=== PATIENT | male | born 1990 | race African-American/Black ===

== ENCOUNTER 2019-06-05 22:46 | Emergency (ER) | payer OTHER ==
[~2019-06-05] VITALS: Ht 185.4 cm; Wt 108.8 kg
[2019-06-06 01:01] LABS: ABSOLUTE BASOPHILS 0.1 thou/uL (0.0-0.2); ABSOLUTE EOSINOPHILS 0.2 thou/uL (0.0-0.7); ABSOLUTE LYMPHOCYTES 2.6 thou/uL (0.8-5.3); ABSOLUTE MONOCYTES 0.6 thou/uL (0.0-1.2); ABSOLUTE NEUTROPHILS 2.8 thou/uL (1.6-8.1); BASOPHILS 1.3 %; EOSINOPHILS 2.5 %; HEMATOCRIT 39.9 % (42.0-52.0); HEMOGLOBIN 13.8 gm/dL (14.0-18.0); LYMPHOCYTES 42.2 %; MCH 27.1 pg (26.0-34.0); MCHC 34.5 g/dL (28.0-37.0); MCV 78.7 fL (80.0-100.0); MPV 9.4 fl. (7.2-11.1); NUCLEATED RBCS 0 /100WBC; PLATELET COUNT* 213 thou/uL (150-400); RBC 5.07 mil/uL (4.50-6.00); RDW-CV 13.4 % (10.5-14.5); WBC 6.2 thou/uL (4.0-11.0)
[2019-06-06 01:07] LABS: CALCIUM 8.7 mg/dL (8.5-10.1); CREATININE 0.9 mg/dL (0.6-1.3); POTASSIUM 3.3 mmol/L (3.5-5.1)
[2019-06-06 01:12] LABS: ALBUMIN 3.6 g/dL (3.4-5.0); TOTAL BILIRUBIN 1.1 mg/dL (<0.1-1.0); TOTAL PROTEIN 7.2 g/dL (6.4-8.2)
[2019-06-06 01:18] LABS: URINE BILIRUBIN NEGATIVE (Negative); URINE BLOOD NEGATIVE (Negative); URINE CLARITY CLEAR; URINE COLOR YELLOW; URINE GLUCOSE-RANDOM NEGATIVE (Negative); URINE KETONES NEGATIVE (Negative); URINE LEUKOCYTES-REFLEX NEGATIVE (Negative); URINE NITRITE-REFLEX NEGATIVE (Negative); URINE PROTEIN NEGATIVE (Negative); URINE SPECIFIC GRAVITY >= 1.030 (1.005-1.030); URINE UROBILINOGEN 0.2 E.U./dl (0.2-1.0)
[2019-06-06 01:24] LABS: AMP/METHAMP Negative (Negative); BARBITURATES Negative (Negative); BENZODIAZEPINES Negative (Negative); COCAINE Negative (Negative); METHADONE Negative (Negative); OPIATES Negative (Negative); PCP Negative (Negative); THC Negative (Negative)
[2019-06-06 04:27] VITALS: BP 148/86
--- NOTE | 2019-06-08 14:58 | EKG ---
[place] [address] ELECTROCARDIOGRAM REPORT Name: ORALIA PORTEROLAS [id number] Admission: 06/05/19 Attend Phys: Discharge: 06/06/19 Date of : [birth year] Report #: [id number] THIS REPORT FOR: //name// [facility] ED Test Date: 2019-06-05 Test Time: 22:57:06 Pat Name: DARI PORTER Department: Room: Gender: M Mail Messenger: : 1990 Requested By: Linette Barkley Order Number: [id number] MD: Valeriy Leo Measurements Intervals [place] Rate: 65 P: -26 IN: 173 QRS: 18 QRSD: 132 T: 14 QT: 392 QTc: 408 Interpretive Statements Sinus rhythm IVCD, consider atypical RBBB ST elev, probable normal early repol pattern Baseline wander in lead(s) I,aVL No previous ECG available for comparison Electronically Signed On 06-08-2019 14:58:44 ENDLESS BED DRUM SANDER by Valeriy Leo [email or web address] <ELECTRONICALLY SIGNED> By: Valeriy Leo MD, [facility] 06/08/19 1458 225 56 Valeriy Leo MD, [facility] /EPI
== END 2019-06-06 04:27 | disposition home or self-care (01) ==
LOC: M.ERS 22:46
PROVIDERS: Personal Emergency Response Attendant
DX: R11.0 Nausea (principal); R42 Dizziness and giddiness

== ENCOUNTER 2019-06-13 02:46 | Emergency (ER) | payer OTHER ==
[~2019-06-13] VITALS: Ht 188 cm; Wt 131.5 kg
[2019-06-13 04:11] LABS: URINE BILIRUBIN NEGATIVE (Negative); URINE BLOOD NEGATIVE (Negative); URINE CLARITY CLEAR; URINE COLOR YELLOW; URINE GLUCOSE-RANDOM NEGATIVE (Negative); URINE KETONES NEGATIVE (Negative); URINE LEUKOCYTES-REFLEX NEGATIVE (Negative); URINE NITRITE-REFLEX NEGATIVE (Negative); URINE PROTEIN NEGATIVE (Negative); URINE SPECIFIC GRAVITY 1.025 (1.005-1.030)
[2019-06-13 04:19] LABS: AMP/METHAMP Negative (Negative); BARBITURATES Negative (Negative); BENZODIAZEPINES Negative (Negative); COCAINE Negative (Negative); METHADONE Negative (Negative); OPIATES Negative (Negative); PCP Negative (Negative); THC Negative (Negative)
[2019-06-13 04:19] LABS: ABSOLUTE BASOPHILS 0.1 thou/uL (0.0-0.2); ABSOLUTE EOSINOPHILS 0.2 thou/uL (0.0-0.7); ABSOLUTE LYMPHOCYTES 1.9 thou/uL (0.8-5.3); ABSOLUTE MONOCYTES 0.8 thou/uL (0.0-1.2); ABSOLUTE NEUTROPHILS 3.7 thou/uL (1.6-8.1); BASOPHILS 1.2 %; EOSINOPHILS 3.7 %; HEMATOCRIT 41.2 % (42.0-52.0); HEMOGLOBIN 13.9 gm/dL (14.0-18.0); LYMPHOCYTES 28.5 %; MCH 26.9 pg (26.0-34.0); MCHC 33.7 g/dL (28.0-37.0); MCV 79.8 fL (80.0-100.0); MONOCYTES 11.5 %; MPV 9.5 fl. (7.2-11.1); NUCLEATED RBCS 0 /100WBC; PLATELET COUNT* 178 thou/uL (150-400); POLYS 55.1 %; RBC 5.16 mil/uL (4.50-6.00); RDW-CV 13.3 % (10.5-14.5); WBC 6.7 thou/uL (4.0-11.0)
[2019-06-13 04:28] LABS: CALCIUM 8.5 mg/dL (8.5-10.1); CREATININE 0.9 mg/dL (0.6-1.3); POTASSIUM 3.4 mmol/L (3.5-5.1)
[2019-06-13 04:33] LABS: ALBUMIN 3.7 g/dL (3.4-5.0); TOTAL BILIRUBIN 1.2 mg/dL (<0.1-1.0); TOTAL PROTEIN 7.3 g/dL (6.4-8.2)
[2019-06-13 10:33] VITALS: BP 186/88
== END 2019-06-13 10:34 | disposition designated cancer center or children's hospital (05) ==
LOC: M.ERS 02:46
PROVIDERS: Emergency Medicine
DX: F29 Unspecified psychosis not due to a substance or known physiological condition (principal); Z59.0 Homelessness

== ENCOUNTER 2019-07-02 01:19 | Emergency (ER) | payer OTHER ==
[~2019-07-02] VITALS: Ht 182.9 cm; Wt 113.4 kg
[2019-07-02 01:44] LABS: HEMOGLOBIN 13.7 gm/dL (14.0-18.0); MCH 26.9 pg (26.0-34.0); MCHC 34.3 g/dL (28.0-37.0); MCV 78.2 fL (80.0-100.0); MPV 9.1 fl. (7.2-11.1); RBC 5.11 mil/uL (4.50-6.00); RDW-CV 13.5 % (10.5-14.5)
[2019-07-02 01:59] LABS: AMP/METHAMP Negative (Negative); BARBITURATES Negative (Negative); BENZODIAZEPINES Negative (Negative); COCAINE Negative (Negative); METHADONE Negative (Negative); OPIATES Negative (Negative); PCP Negative (Negative); THC Negative (Negative)
[2019-07-02 02:04] LABS: CALCIUM 9.3 mg/dL (8.5-10.1); CREATININE 0.8 mg/dL (0.6-1.3); POTASSIUM 3.9 mmol/L (3.5-5.1)
[2019-07-02 04:00] VITALS: BP 118/70
--- NOTE | 2019-07-02 15:57 | EKG ---
[place] [address] ELECTROCARDIOGRAM REPORT Name: DARI PORTER Room: [facility]#: [id number] Admission: 07/02/19 Attend Phys: Discharge: 07/02/19 Date of : [birth year] Report #: [id number] THIS REPORT FOR: //name// [facility] ED Test Date: 2019-07-02 Test Time: 01:25:14 Pat Name: DARI PORTER Department: Room: Gender: M [employer] Sales Representative: [place] : 1990 Requested By: Linette Barkley Order Number: [id number] MD: Ash Archuleta Measurements Intervals [place] Rate: 70 P: 46 CO: 191 QRS: 17 QRSD: 128 T: 4 QT: 396 QTc: 428 Interpretive Statements Sinus rhythm IVCD, consider atypical RBBB Compared to ECG 06/05/2019 22:57:06 ST (T wave) deviation no longer present Electronically Signed On 07-02-2019 15:56:41 DRY ROLLER by Ash Archuleta [email or web address] <ELECTRONICALLY SIGNED> By: Ash Archuleta MD, [facility] 07/02/19 1556 0125 0125 Ash Archuleta MD, FAC /EPI
== END 2019-07-02 04:00 | disposition home or self-care (01) ==
LOC: M.ERS 01:19
PROVIDERS: Personal Emergency Response Attendant
DX: R07.89 Other chest pain (principal)